=== PATIENT | female | born 1965 | race Caucasian/White ===

== ENCOUNTER 2020-05-18 14:00 | Emergency (ER) | payer BC, OTHER ==
[~2020-05-18] VITALS: Ht 162.6 cm; Wt 62.1 kg
--- NOTE | 2020-05-18 14:25 | NUR ---
PT WAS D/C BY WITH VERBAL ACI.
== END 2020-05-18 14:30 | disposition home or self-care (01) ==
LOC: ER 14:00
DX: Z20.828 Contact with and (suspected) exposure to other viral communicable diseases (principal); Z87.19 Personal history of other diseases of the digestive system
CPT/HCPCS: 87426; 99283; U0003; A4663

== ENCOUNTER → 2020-07-13 | Outpatient (CLI) | payer BC, OTHER | END | disposition home or self-care (01) | LOC: XRAY 10:43 | PROVIDERS: ATTEND Internal Medicine Gastroenterology | DX: J98.4 Other disorders of lung (principal); I70.0 Atherosclerosis of aorta; K51.90 Ulcerative colitis, unspecified, without complications | CPT/HCPCS: 71046 ==

== ENCOUNTER 2021-01-11 10:52 | Emergency (ER) | payer BC, OTHER ==
[~2021-01-11] VITALS: Ht 162.6 cm; Wt 63.0 kg
--- NOTE | 2021-01-11 11:45 | NUR ---
Gave pt d/c instructions, pt verbalized understanding.
--- NOTE | 2021-01-11 12:09 | NUR ---
Notified pt of Covid results.
== END 2021-01-11 12:11 | disposition home or self-care (01) ==
LOC: ER 10:52
DX: U07.1 COVID-19 (principal); K51.90 Ulcerative colitis, unspecified, without complications
CPT/HCPCS: 71045; A4663